=== PATIENT | male | born 1985 | race Caucasian/White ===

== ENCOUNTER 2017-10-24 03:22 | Emergency (ER) | payer OTHER, SELFPAY ==
[2017-10-24 03:25] VITALS: BP 154/96; PULSE 75; RESP 18; TEMP 36.9; O2SAT 96; BMI 30.8
--- NOTE | 2017-10-24 04:43 | ED.VISSUMM ---
- ER Visit Summary Date of Service: 10/24/17 Chief Complaint: Dental pain History of Present Illness: The patient is a 32 M presenting with left lower dental pain. He states it started 2 days ago. He states the pain initially was controlled with ibuprofen. He states it started to worsen last night. He tried a leftover hydrocodone that he had from previous wisdom teeth extraction. This did not help his pain. He has had swelling in the left lower jaw. He denies fever or other complaints. Physical Examination: Vitals are stable. Patient is afebrile. Alert no acute distress. HEENT exam left lower molar tenderness with surrounding fluctuance. No sublingual edema Neck is supple. Lungs are clear and equal bilaterally. Heart is regular rate and rhythm. Skin is warm and dry. Remainder of exam is unremarkable. Emergency Department Course and Treatment: Patient was given OxyIR ?1. Aspirated with 18-gauge needle and incised with 11 blade. Pus was drained. Irrigated. He is given penicillin and short course of Hines. Advised to follow-up with his dentist. Advised to return to ED for worsening complaints. Disposition: Discharge home Impression: Dental abscess, I&D This note was generated with [employer] dictation software. It may contain incorrect words, spelling, and punctuation that were not noted in review of the chart prior to signing ED Disposition - Plan for ED Patient: Chief Complaint: Dental Instructions: ED Abscess Dental Prescriptions: Oxycodone HCl/Acetaminophen [Percocet 5/325] 1 tablet PO Q6H PRN PRN 3 Days #8 tablet PRN Reason: Pain Penicillin V Potassium 500 mg PO 4X/DAY #40 tablet Referrals: Jase Ruelas DO [Primary Care Provider] -
[2017-10-24] MEDS: oxyCODONE 5 MG Tablet PO (04:49)
--- NOTE | 2017-10-24 05:21 | ED.DEP ---
ED Disposition - Plan for ED Patient: Chief Complaint: Dental Instructions: ED Abscess Dental Prescriptions: Oxycodone HCl/Acetaminophen [Percocet 5/325] 1 tablet PO Q6H PRN PRN 3 Days #8 tablet PRN Reason: Pain Penicillin V Potassium 500 mg PO 4X/DAY #40 tablet Referrals: Jase Ruelas DO [Primary Care Provider] -
[2017-10-24 05:44] VITALS: BP 137/87; PULSE 60; RESP 14; O2SAT 96
[2017-10-24] MEDS: Penicillin Vk 250 MG Tablet 500 MG PO (05:45)
== END 2017-10-24 05:49 | disposition home or self-care (01) ==
PROVIDERS: Emergency Provider Emergency Medicine; Family Provider Family Medicine; PCP Family Medicine
DX: K04.7 Periapical abscess without sinus (principal)
CPT/HCPCS: 41800; 99283

== ENCOUNTER 2024-01-15 01:21 | Emergency (ER) | payer OTHER, SELFPAY ==
[2024-01-15 01:22] VITALS: BP 165/98; PULSE 86; RESP 24; TEMP 36.8; O2SAT 97; BMI 33.7
[2024-01-15 01:26] VITALS: O2SAT 98
--- NOTE | 2024-01-15 01:34 | RAD_ITS ---
STUDY: X-RAY CHEST REASON FOR EXAM: Male, 38 years old patient with chest pain TECHNIQUE: Single AP portable view of the chest. COMPARISON: Prior comparison studies are not available for review at this time. FINDINGS: Cardiac monitoring leads are present. The lungs are underexpanded with prominence of bronchovascular markings. There is no demonstrated pleural abnormality. There is mild cardiac enlargement. Normal mediastinum and karo. There is prominence of the pulmonary hilar arteries with peripheral pulmonary vascular congestion. Normal visualized aortic arch and descending thoracic aorta. Normal visualized thoracic spine. Normal visualized ribs, clavicles, and shoulders. There is no demonstrated abnormality of the visualized soft tissue structures of the upper abdomen. RAD/Chest 1 View (Portable) IMPRESSION: Cardiomegaly and pulmonary vascular congestion. Electronically Signed: Danielle Deluna MD at 2:18 EST ,
--- NOTE | 2024-01-15 01:35 | ED.VIS.CHEST ---
HPI History of Present Illness Chief Complaint: Chest Pain Narrative Narrative: 38-year-old male who denies significant past medical history presents with chest discomfort that he has had intermittently over the last few weeks. He has also noticed dyspnea on exertion. He denies any nausea or vomiting, but tonight before he ate Thanksgiving dinner at around 4:00 in the afternoon, over 6 hours ago, he had chest discomfort and a diaphoretic episode. He denies any DVT or PE risk factors but states he has family history of early coronary artery disease. While he does not smoke, he chews tobacco. His noticed that his blood pressure has been elevated in the 150 systolic and his diastolic was elevated as well he denies any exacerbating or alleviating factors. His discomfort has improved over time, but given the fact that has been happening more frequently, he presents to the emergency department for evaluation tonight. PFSH PFS Home Medications ?Medication ?Instructions ?Recorded ?Last Taken ?Type NK 01/15/24 Unknown History Allergy/AdvReac Type Severity Reaction Status Date / Time sulfamethoxazole (From Allergy Mild Rash Verified 01/15/24 01:29 ) trimethoprim (From ) Allergy Mild Rash Verified 01/15/24 01:29 Social History Smoking Status: Never smoker ROS ROS ED ROS Narrative Constitutional: No fever, no chills. Diaphoretic episode today. HEENT: No sore throat. No neck pain. No loss of vision. No rhinorrhea. Cardiovascular: Positive central, nonradiating chest discomfort/chest pain. No palpitations. No pedal edema. Respiratory: No cough, positive dyspnea on exertion and shortness of breath. Abdominal: No abdominal pain. No nausea. No vomiting. Genitourinary: No dysuria. No hematuria. Musculoskeletal: No myalgias. No arthralgias. Neurologic: No headaches. No dizziness. No lightheadedness. Skin: No rash. No change in color. EXAM Physical Exam Narrative Exam Narrative: Afebrile. Vital signs noted. HEENT examination shows her to be normocephalic, atraumatic, PERRL, EOMI. Neck soft and supple without meningismus. Cardiovascular examination reveals a regular rate and rhythm, no murmurs rubs or gallops appreciated. Lungs are clear to auscultation bilaterally. Abdomen soft, nontender with normal active bowel sounds. Neurological examination nonfocal and nonlateralizing. Const Vital Signs: 01/15/24 01:22 01/15/24 01:22 01/15/24 01:26 Temperature 98.2 F Temperature Source Oral Pulse Rate 86 Respiratory Rate 24 H Respiratory Effort Normal Respiratory Depth Respiratory Pattern Blood Pressure 165/98 H Blood Pressure Mean 120 Pulse Ox 97 Oxygen Delivery Method Room Air 01/15/24 01:26 01/15/24 01:45 01/15/24 02:33 Temperature Temperature Source Pulse Rate 80 Respiratory Rate 19 H Respiratory Effort Normal Non-Labored Respiratory Depth Normal Respiratory Pattern Normal Blood Pressure 137/88 H Blood Pressure Mean 104 Pulse Ox 97 Oxygen Delivery Method Room Air Room Air 01/15/24 03:00 01/15/24 04:00 Temperature Temperature Source Pulse Rate 62 71 Respiratory Rate 15 18 Respiratory Effort Respiratory Depth Respiratory Pattern Blood Pressure 142/91 H 137/83 H Blood Pressure Mean 108 101 Pulse Ox 97 95 Oxygen Delivery Method Room Air Room Air Heart Score History: Slightly/Non-Suspicious ECG: Normal Age: </= 45 years Risk Factors: 1 or 2 Risk Factors Troponin: </= Normal Limit Score: 1 MDM MDM MDM Narrative Medical decision making narrative: Differential diagnosis includes but not limited to ACS versus pneumothorax versus pneumonia versus pulmonary embolism. I have very low suspicion for aortic dissection because he does not have any tearing back pain. His blood pressure is elevated at 165/98 initially but then systolically was 158. He was given aspirin and chest pain workup was pursued with D-dimer. However, history and physical does not support pneumothorax, pneumonia, or PE. EKG obtained and interpreted by myself independently as normal sinus rhythm with sinus arrhythmia at [address] changes. No STEMI. I reviewed his laboratory work and he has normal white count of 5.9 with hemoglobin 14.9, hematocrit 41.6, platelet count normal at 207. D-dimer is negative at less than 0.27 so I doubt pulmonary embolism. I do not feel CTA is indicated. Chloride slightly elevated at 109 which I think is nonspecific, normal BUN of 16 and creatinine 0.99. Sodium normal at 139 with potassium 3.8. Glucose is elevated at 123. He has a normal anion gap of 5. Initial high-sensitivity troponin is 5. Chest x-ray in 1 view interpreted by myself independently shows no pneumonia, no pneumothorax. There is mild vascular congestion. I reviewed the radiology report which confirms my independent interpretation. I added a BNP given his vascular congestion. However, his pulse ox is 97% on room air without evidence of hypoxia. His BNP is normal at 7.4. I doubt CHF. As long as his second troponin is normal, I feel he can be discharged to follow-up with his primary care provider. His second troponin did return at 6 for an acceptable delta troponin. His blood pressure came down to 130s systolic. I do not feel that he needs to be started on medication currently, and do feel that his best left to his primary care provider. He should follow-up in the next 3 to 5 days. Return instructions to the emergency department were reviewed. Disposition is discharged in stable condition. History & Record Review Discussion w/independent historian: Patient Lab Data Attestation: I reviewed the patient's lab results. Labs: Laboratory Results - last 24 hr 01/15/24 01/15/24 01:43 03:50 WBC 5.9 RBC 4.58 L Hgb 14.9 Hct 41.6 MCV 90.8 MCH 32.5 H MCHC 35.8 RDW Std Deviation 41.1 RDW Coeff of Naomi 12.6 Plt Count 207 MPV 9.6 Immature Gran % (Auto) 0.200 Neut % (Auto) 37.1 L Lymph % (Auto) 47.9 H [place] % (Auto) 12.6 H Eos % (Auto) 1.5 Baso % (Auto) 0.7 Absolute Neuts (auto) 2.2 Absolute Lymphs (auto) 2.80 Nucleated RBC % 0 D-Dimer Quant (PE/DVT) < 0.27 L Sodium 139 Potassium 3.8 Chloride 109 H Carbon Dioxide 25.0 Anion Gap 5 BUN 16 Creatinine 0.99 Estim Creat Clear Calc 123.81 Est GFR (MDRD) Af Amer 109 Est GFR (MDRD) Non-Af 90 BUN/Creatinine Ratio 16.2 Glucose 123 H Calcium 8.8 Troponin I High Sens 5 6 B-Natriuretic Peptide 7.4 Radiography Diagnostic Testing: Clinical Impression(s) from Imaging Studies Chest X-Ray 01/15/24 01:34 IMPRESSION: Cardiomegaly and pulmonary vascular congestion. Electronically Signed: Danielle Deluna MD at 2:18 EST , Discharge Plan Triage Chief Complaint: Chest Pain Other Complaint: Shortness of Breath ED Provider: Nav Salomon Dx/Rx/DC Orders Clinical Impression: Chest pain, SOB (shortness of breath), Elevated blood pressure reading Instructions: ED Chest Pain, Uncertain Cause, ED Dyspnea, ED Hypertension, To Be Confirmed Prescriptions: No Action NK Primary Care Provider: Jase Ruelas Referrals: Jase Ruelas, [Primary Care Provider] - 3-5 Days Activity Restrictions/Additional Instructions: Return with increased chest discomfort, increasing shortness of breath, new or worsening symptoms. Keep a log of your blood pressures and follow-up with your primary care provider within the next 3 to 5 days to a week. Print Language: Icelandic Disposition Disposition: Home, Self Care
[2024-01-15] MEDS: Aspirin 81 MG TAB.CHEW 324 MG PO (01:43)
[2024-01-15 01:50] LABS: Absolute Neutrophil Count 2.2 X10^3/uL (2.0-7.7); Basophil# 0.04 X10^3/uL; Basophil% 0.7 % (0-1); Eosinophil# 0.09 X10^3/uL; Eosinophils% 1.5 % (0-5); Hematocrit 41.6 % (40-54); Hemoglobin 14.9 g/dL (13.0-16.5); Lymphocyte % 47.9 % (19-41); Mean Corp Hgb Conc 35.8 g/dL (32-36); Mean Corpuscular Hgb 32.5 pg (27.0-32.0); Mean Corpuscular Volume 90.8 fL (80-94); Mean Platelet Vol. 9.6 fl (6.2-12.0); Monocyte# 0.74 X10^3/uL; Monocyte% 12.6 % (0-10); NRBC Flagged by Analyzer 0 % (0-5); Neutrophil # 2.17 X10^3/uL (2.7-7.7); Neutrophil % 37.1 % (47-70); Platelet Count 207 K/mm3 (150-450); RBC Distribution Width CV 12.6 % (11.6-14.6); RBC Distribution Width SD 41.1 fl (35.1-43.9); Red Blood Count 4.58 M/mm3 (4.6-6.2); White Blood Count 5.9 K/mm3 (4.4-11.0)
[2024-01-15 02:08] LABS: Anion Gap 5 (5-15); BUN 16 mg/dL (7-18); BUN/Creat Ratio 16.2 RATIO (10-20); Calcium,Total 8.8 mg/dL (8.5-10.1); Chloride 109 mmol/L (98-107); Creatinine, Serum 0.99 mg/dL (0.70-1.30); EST Glomerular Filtration Rate 90 mL/min (>60); Est Glom Filt Rate - Afr Amer 109 mL/min (>60); Estimated Creatinine Clearance 123.81 ml/min; Glucose 123 mg/dL (74-106); Potassium 3.8 mmol/L (3.5-5.1); Sodium Level 139 mmol/L (136-145); Troponin-I HS (w/2H Reflex) 5 pg/mL (3.0-78.0)
[2024-01-15 02:16] LABS: D-Dimer Quantitative (DVT/PE) < 0.27 FEU/ug/m (0.27-0.49)
[2024-01-15 02:33] VITALS: BP 137/88; PULSE 80; RESP 19; O2SAT 97
[2024-01-15 02:45] LABS: BNP,B-Type NATRIURETIC PEPTIDE 7.4 pg/mL (0-100)
[2024-01-15 03:00] VITALS: BP 142/91; PULSE 62; RESP 15; O2SAT 97
[2024-01-15 03:47] LABS: Reflex Troponin-HS? (from REC) Y
[2024-01-15 04:00] VITALS: BP 137/83; PULSE 71; RESP 18; O2SAT 95
[2024-01-15 04:15] LABS: Troponin-I HS 6 pg/mL (3.0-78.0)
[2024-01-15 04:32] VITALS: BP 143/90; PULSE 54; RESP 16; TEMP 36.8; O2SAT 98
== END 2024-01-15 04:34 | disposition home or self-care (01) ==
PROVIDERS: Emergency Provider Emergency Medicine; PCP Family Medicine; Visit Provider Emergency Medicine
DX: R07.89 Other chest pain (principal); R06.02 Shortness of breath; R03.0 Elevated blood-pressure reading, without diagnosis of hypertension; F17.220 Nicotine dependence, chewing tobacco, uncomplicated; Z82.49 Family history of ischemic heart disease and other diseases of the circulatory system
CPT/HCPCS: 71045; 80048; 83880; 84484; 85025; 85379; 93005; 99285; A4216

== ENCOUNTER → 2024-01-25 | Outpatient (CLI) | payer OTHER, SELFPAY ==
[2024-01-27 12:08] LABS: CHOLESTEROL TOTAL 222 mg/dL (100-199); HDL-C 36 mg/dL (>39); HDL-P TOTAL 21.7 umol/L (>=30.5); INSULIN RESISTANCE SCORE 65 (<=45); LDL-C (NIH CALC) 164 mg/dL (0-99); LDL-P 1718 nmol/L (<1000); SMALL LDL-P 361 nmol/L (<=527); TRIGLYCERIDES 122 mg/dL (0-149)
== END | disposition home or self-care (01) ==
LOC: MTLAB 07:13
PROVIDERS: PCP Family Medicine; Referring Provider Family Medicine; Visit Provider Family Medicine
DX: Z00.00 Encounter for general adult medical examination without abnormal findings (principal)
CPT/HCPCS: 36415; 80061; 83704

== ENCOUNTER → 2024-02-22 | Outpatient (CLI) | payer OTHER, SELFPAY ==
--- NOTE | 2024-02-22 08:01 | ECHOD_ITS ---
Reason For Study: HYPERTENSION Procedure This was a 2D Doppler, Color Flow transthoracic echocardiogram. Exam performed in department. Left Ventricle Normal LV size. The estimated ejection fraction is 55-60 %. No evidence for diastolic dysfunction. No regional wall motion abnormalities noted. Right Ventricle Normal RV size. Normal systolic function. Atria The left and right atria are normal. No doppler evidence for ASD. Mitral Valve There is no mitral valve stenosis. Trivial mitral valve insufficiency. Tricuspid Valve There is no tricuspid stenosis. Trivial tricuspid valve insufficiency. Unable to estimate RV systolic pressure due to insufficient tricuspid regurgitant envelope. Aortic Valve Trisinus/trileaflet aortic valve. There is no aortic stenosis. No aortic valve insufficiency. Pulmonic Valve There is no pulmonic valvular stenosis. No pulmonic valve insufficiency. Great Vessels Normal aortic root. Pericardium/Pleural No pericardial effusion. MMode/2D Measurements & Calculations LVIDd: 4.3 cm IVSd: 1.1 cm LVOT diam: 2.1 cm LVIDs: 2.9 cm LVPWd: 1.1 cm LVOT area: 3.6 cm2 RVDd: 4.0 cm FS: 32.2 % asc Aorta Diam: 3.5 cm LAV(MOD-bp): 38.7 ml LVAd ap4: 31.5 cm2 LAV(MOD-bp) Indexed: 17.6 ml/m2 LVLd ap4: 9.1 cm LAV(MOD-sp2): 39.0 ml EDV(MOD-sp4): 93.0 ml LAV(MOD-sp4): 37.6 ml EDV(sp4-el): 93.1 ml LVAs ap4: 18.1 cm2 LVLs ap4: 7.5 cm ESV(MOD-sp4): 36.6 ml ESV(sp4-el): 37.0 ml EF(MOD-sp4): 60.6 % EF(sp4-el): 60.3 % LVAd ap2: 32.0 cm2 SV(MOD-sp4): 56.3 ml SV(MOD-sp2): 58.2 ml LVLd ap2: 8.5 cm SI(MOD-sp4): 25.7 ml/m2 SI(MOD-sp2): 26.5 ml/m2 EDV(MOD-sp2): 97.4 ml EDV(sp2-el): 101.7 ml LVAs ap2: 18.0 cm2 LVLs ap2: 6.9 cm ESV(MOD-sp2): 39.2 ml ESV(sp2-el): 39.5 ml EF(MOD-sp2): 59.8 % SV(sp4-el): 56.1 ml Ao sinus diam: 3.[address] Junction: 2.6 cm LA dimension(2D): 3.9 cm LA A4 area: 15.6 cm2 RA A4 area: 11.7 cm2 TAPSE: 2.2 cm Time Measurements MV dec time: 0.18 sec Doppler Measurements & Calculations MV E max johnathon: 72.8 cm/sec Lat Peak E' John[place]: 16.8 cm/sec Med Peak E' [place]: 11.3 cm/sec MV A max johnathon: 58.1 cm/sec E/E' lat: 4.3 E/E' med: 6.4 MV E/A: 1.3 MV dec slope: 397.8 cm/sec2 Ao V2 max: 168.7 cm/sec LV V1 max: 132.7 cm/sec Ao max P.4 mmHg LV V1 max P.0 mmHg Ao V2 mean: 119.0 cm/sec LV V1 mean P.4 mmHg Ao mean P.2 mmHg LV V1 mean: 101.9 cm/sec Ao V2 VTI: 30.2 cm LV V1 VTI: 23.0 cm AV (velocity ratio): 0.76 KENDRA(I,D): 2.7 cm2 KENDRA(V,D): 2.8 cm2 SV(LVOT): 81.8 ml PA V2 max: 96.0 cm/sec TR max johnathon: 215.4 cm/sec TR max P.6 mmHg ECHO/Echo Complete Interpretation Summary The estimated ejection fraction is 55-60 %. No evidence for diastolic dysfunction. Trivial mitral valve insufficiency. Ordering Physician: Jase Ruelas Referring Physician: Jase Ruelas Performed By: Rachel Ruth RDCS
== END | disposition home or self-care (01) ==
LOC: CVS 08:01
PROVIDERS: PCP Family Medicine; Referring Provider Family Medicine; Visit Provider Family Medicine
DX: I51.7 Cardiomegaly (principal); I10 Essential (primary) hypertension
CPT/HCPCS: 93306

== ENCOUNTER → 2024-03-01 | Outpatient (CLI) | payer OTHER, SELFPAY ==
--- NOTE | 2024-03-01 06:45 | CT_ITS ---
STUDY: CT CHEST WITHOUT CONTRAST REASON FOR EXAM: Male, 38 years old. Encounter for screening for cardiovascular disorders RADIATION DOSAGE (If Supplied By Facility): CTDIvol = ( 12.19 ) mGy, DLP = ( 243.79 ) mGycm TECHNIQUE: Transaxial imaging was performed without the administration of intravenous contrast material. Cardiac over read examination. Individualized dose optimization techniques were used for this CT. COMPARISON: No relevant priors. FINDINGS: CHEST The lungs are normal. There is no demonstrated pleural abnormality. Normal heart and pericardium. No coronary artery calcification seen. There are small small lymph nodes within the mediastinum, which are normal in size and morphology most compatible with reactive lymph hyperplasia. Normal hilar regions. Normal unenhanced pulmonary arteries. Normal aorta arch and descending thoracic aorta. Normal osseous structures. There is no demonstrated abnormality of the visualized upper abdomen. CT/Limited Chest CT Cardiac Only IMPRESSION: Normal unenhanced CT chest. Electronically Signed: Ced Mack MD at 10:55 EST ,
--- NOTE | 2024-03-01 08:33 | CA.SCORE ---
Calcium Scoring Date of Study:: 03/01/24 Indications Indications: Sleep apnea Coronary Calcium Scoring: High-resolution Computed Tomographic imaging of the chest was performed on [03/01/2023], with particular attention paid to the coronary arteries. Images from the examination were analyzed for the presence and extent of coronary artery calcification , using coronary calcium quantification software. The patient tolerated the procedure well and there were no complications. The results of the coronary calcification analysis are provided below. Findings Coronary Artery Left Main (LM): 0 Left Anterior Descending (LAD): 0 Left Circumflex (LCX): 0 Right Coronary Artery (RCA): 1.1 Total Agatston Score: 1.1 Percentile Rankinth to 75th percentile Calcium Scoring Interpretation: Different methods to categorize the overall amount of coronary plaque. Overall amount CAC SIS Visual of coronary plaque P1 Mild -100 <2 1-2 vessels with mild amount of plaque P2 Moderate 101-300 3-4 1-2 vessels with moderate amount, 3 vessels with mild amount of plaque P3 Severe 301-999 5-7 3 vessels with moderate amount, 1 vessel with severe amount of plaque P4 Extensive >1000 >8 2-3 vessels with severe amount of plaque Conclusion: Focal atherosclerosis noted in the right coronary artery- mild
== END | disposition home or self-care (01) ==
LOC: CT 07:58 → SL 13:41
PROVIDERS: PCP Family Medicine; Referring Provider Family Medicine; Visit Provider Family Medicine
DX: G47.10 Hypersomnia, unspecified (principal); Z13.6 Encounter for screening for cardiovascular disorders; I10 Essential (primary) hypertension; Z82.49 Family history of ischemic heart disease and other diseases of the circulatory system
CPT/HCPCS: 75571; 76380; 95806

== ENCOUNTER → 2024-06-13 | Outpatient (CLI) | payer OTHER, SELFPAY ==
--- NOTE | 2024-06-13 13:05 | CT_ITS ---
PROCEDURE: LIMITED CHEST CT CARDIAC ONLY REASON FOR EXAM: SOB, ABNORMAL CALCIUM SCORE TECHNIQUE: Supine chest CT without contrast. Contiguous axial scans of 2.5 mm slice thicknesses. One or more dose reduction techniques were used (e.g., Automated exposure control, adjustment of the mA and/or kV according to patient size, use of iterative reconstruction technique). COMPARISON: No relevant prior. FINDINGS: Hardware: None. Lymph nodes: Unremarkable. Heart and Vasculature: Coronary Artery Calcifications: No significant coronary artery calcifications. Lungs and Airways: Unremarkable as visualized. Pleura: Unremarkable. Upper Abdomen: Unremarkable as visualized. Bones: Normal. CT/Limited Chest CT Cardiac Only IMPRESSION: Limited evaluation of the chest. No pathologic abnormalities are identified in the visualized anatomic structures. Reading Location: [facility]
[2024-06-13 13:17] VITALS: BP 129/71; PULSE 52; RESP 14; TEMP 36.1; O2SAT 98; BMI 27.9
[2024-06-13 13:37] VITALS: BP 129/71; PULSE 54
[2024-06-13] MEDS: Nitroglycerin SL (ED/IMG/CATH) 0.4 MG TABLET SL (13:37)
[2024-06-13 13:42] VITALS: BP 118/54; PULSE 52; RESP 16; O2SAT 96
--- NOTE | 2024-06-14 16:59 | CCTA.WCONT ---
CCTA w/Cont Coronary Arteries Date of Study:: 06/13/24 Abnormal coronary calcium score Coronary Calcium Scoring: High-resolution Computed Tomographic imaging of the chest was performed on [06/13/2024], with particular attention paid to the coronary arteries. Intravenous contrast agent was administered per protocol and images reconstructed and displayed. LEFT MAIN CORONARY ARTERY: Arises from the left coronary cusp and bifurcates to left anterior descending artery and left circumflex artery no significant stenosis is present. [] LEFT ANTERIOR DESCENDING CORONARY ARTERY: Arises from the left main coronary artery and continues towards the apex of the ventricle. No significant atherosclerotic plaquing is noted. No coronary stenosis is present. [] LEFT CIRCUMFLEX CORONARY ARTERY: Nondominant left circumflex artery arising from the left anterior descending artery coursing in the AV groove with no significant atherosclerotic plaquing or stenosis present. [] RIGHT CORONARY ARTERY: Dominant vessel arising from the right coronary cusp with no significant atherosclerotic plaquing noted. [] Conclusion: Coronary CT angiogram with no significant stenosis noted in any of the 3 vessels.
== END | disposition home or self-care (01) ==
LOC: CT 12:59
PROVIDERS: PCP Family Medicine; Referring Provider Nurse Practitioner Family; Visit Provider Nurse Practitioner Family
DX: I25.10 Atherosclerotic heart disease of native coronary artery without angina pectoris (principal); I10 Essential (primary) hypertension; E78.5 Hyperlipidemia, unspecified; R06.02 Shortness of breath
CPT/HCPCS: 75574; 76380; Q9967; A4216